=== PATIENT | male | born 1965 | race Caucasian/White ===

== ENCOUNTER 2016-08-30 16:19 | Emergency (ER) | payer BC, OTHER ==
[~2016-08-30] VITALS: Ht 177.8 cm; Wt 79.4 kg
[~2016-08-30 16:19] MED LIST: NOHOMEMEDICATIONS
[2016-08-30 16:21] VITALS: BP 125/90
== END 2016-08-30 17:06 | disposition home or self-care (01) ==
LOC: ER 16:19
DX: S61.412A Laceration without foreign body of left hand, initial encounter (principal); F17.210 Nicotine dependence, cigarettes, uncomplicated; Z88.0 Allergy status to penicillin; W26.0XXA Contact with knife, initial encounter; Y93.89 Activity, other specified; Y92.89 Other specified places as the place of occurrence of the external cause; Y99.9 Unspecified external cause status

== ENCOUNTER 2017-03-09 16:20 | Emergency (ER) | payer BC, OTHER ==
[~2017-03-09] VITALS: Ht 177.8 cm; Wt 79.4 kg
[~2017-03-09 16:20] MED LIST changes: +CLEOCIN HCL150 MG PO
[2017-03-09 16:21] VITALS: BP 161/78
[2017-03-09] MEDS ORDERED: CIPROFLOXIN HC2.5 M1 OPHTHALMIC (16:58)
== END 2017-03-09 17:31 | disposition home or self-care (01) ==
LOC: ER 16:20
DX: S05.01XA Injury of conjunctiva and corneal abrasion without foreign body, right eye, initial encounter (principal); X58.XXXA Exposure to other specified factors, initial encounter; Y93.89 Activity, other specified; Y92.89 Other specified places as the place of occurrence of the external cause; Y99.0 Civilian activity done for income or pay; F17.210 Nicotine dependence, cigarettes, uncomplicated; Z88.0 Allergy status to penicillin